=== PATIENT | male | born 1950 | race Caucasian/White ===

== ENCOUNTER 2018-09-19 20:08 | Emergency (ER) | payer MEDICARE, BC, SELFPAY ==
[2018-09-19 20:10] VITALS: BP 148/90; PULSE 61; RESP 14; TEMP 36.6; O2SAT 99
--- NOTE | 2018-09-19 20:24 | ED.MALEGU ---
HPI - Male Genitourinary General Chief complaint: Urogenital-Male Stated complaint: PLUGGED CATH Time Seen by Provider: 09/19/18 20:10 Source: patient Mode of arrival: ambulatory Limitations: no limitations History of Present Illness HPI Narrative: 67-year-old male with known prostate issues with an indwelling Lawrence catheter. Is scheduled to see Urology within the coming weeks here for evaluation feeling like his catheter is plugged. He states he is leaking around the catheter. Does have some lower abdominal pain. Related Data Allergies Allergy/AdvReac Type Severity Reaction Status Date / Time No Known Drug Allergies Allergy Verified 09/19/18 20:50 Review of Systems Constitutional Denies fever(s) Gastrointestinal Comments: Lower abdominal pain Genitourinary Comments: Lawrence catheter plugged Leaking around the catheter Integumentary/Breasts Denies rash Hematologic/Lymphatic Comments: Not on anticoagulation PFSH Social History Smoking Status: Former smoker Exam Initial Vital Signs Initial Vital Signs: Vital Signs Temperature 97.8 F 09/19/18 20:10 Pulse Rate 61 09/19/18 20:10 Respiratory Rate 14 09/19/18 20:10 Blood Pressure 148/90 H 09/19/18 20:10 Pulse Oximetry 99 09/19/18 20:10 Const General: cooperative, comfortable, well developed, well groomed and No acute distress Resp Effort & Inspection: normal respiratory effort Cardio Rate: regular rate GI Inspection: non-distended Palpation: soft Other: Circumcised, Lawrence catheter in place Skin Lesions: no lesions Rashes: no rashes Neuro General: alert, awake and oriented x3 Extrem General: normal to inspection and capillary refill normal Psych Appearance: grossly normal and well kempt Course Orders Ordered: Discontinued Medications Lidocaine HCl (Urojet) 5 ml TOP NOW ONE Stop: 09/19/18 20:29 Last Admin: 09/19/18 20:50 Dose: 5 ml Vital Signs - 8 hr 09/19/18 21:45 Pulse Rate 72 Respiratory Rate 18 Blood Pressure 128/74 Pulse Oximetry 96 MDM - Male Genitourinary MDM Narrative Medical decision making narrative: Patient's Lawrence catheter was removed in a 3 way catheter was inserted with return of several 100 cc of bloody urine. No clots. Patient states he felt better afterwards. We did discuss urinary retention and also Lawrence catheter problems. He was given return precautions. Will hold on further workup for now. He expressed understanding and agreement with plan. Discharge Plan Departure Patient Disposition: Home Clinical Impression: Acute urinary retention, Lawrence catheter problem Discharge Date/Time: 09/19/18 21:56 Interventions: ED Discharge Assessment Last Done: 09/19/18 21:45 Instructions: How to Care for Your Lawrence Catheter -- Male Activity Restrictions/Additional Instructions: Keep all of your scheduled medical appointments. Continue all of your medications as directed. Return to the emergency department for any new or worsening symptoms.
[2018-09-19] MEDS: LIDOCAINE 2% (UROJET) 5 ML GEL TOP (20:50)
[2018-09-19 21:45] VITALS: BP 128/74; PULSE 72; RESP 18; O2SAT 96
== END 2018-09-19 21:56 | disposition home or self-care (01) ==
PROVIDERS: Emergency Provider Emergency Medicine
DX: R33.9 Retention of urine, unspecified (principal); T83.9XXA Unspecified complication of genitourinary prosthetic device, implant and graft, initial encounter
CPT/HCPCS: 51705; 99283

== ENCOUNTER 2018-09-22 20:22 | Emergency (ER) | payer MEDICARE, BC, SELFPAY ==
[2018-09-22 20:30] VITALS: BP 112/78; PULSE 78; RESP 16; TEMP 36.9; O2SAT 94
[2018-09-22 22:18] VITALS: BP 115/75; PULSE 76; RESP 16; O2SAT 96
--- NOTE | 2018-09-23 01:57 | ED.MALEGU ---
HPI - Male Genitourinary General Chief complaint: Urogenital-Male Stated complaint: URINARY CATHETER IS PLUGGED Time Seen by Provider: 09/22/18 20:49 Source: patient Mode of arrival: ambulatory Limitations: no limitations History of Present Illness HPI Narrative: 67-year-old male, nonsmoker presents to the emergency department with a chief complaint of Lawrence catheter problem. He has fully placed on Wednesday and has ongoing trouble with the enlarged prostate. [facility] and has what sounds like an upcoming surgical intervention. He states that he started having decreased output in the Lawrence bag and then urine was leaking around the catheter. This has happened in the past usually with a clogged catheter. He denies abdominal pain nor flank pain. He is not dizzy or lightheaded. Onset (ago): hour(s) Duration: constant Location: penis Relieving factors: none Related Data Allergies Allergy/AdvReac Type Severity Reaction Status Date / Time No Known Drug Allergies Allergy Verified 09/19/18 20:50 Review of Systems Constitutional Denies chills, Denies fever(s), Denies lethargy and Denies weakness Eyes Denies change in vision, Denies eye discharge, Denies irritation and Denies loss of vision ENT Ears, Nose, Mouth, and Throat: Denies change in voice, Denies neck pain and Denies sore throat Cardiovascular Denies chest pain, Denies irregular heart rhythm, Denies lightheadedness, Denies palpitations, Denies dyspnea, Denies dyspnea on exertion and Denies orthopnea Respiratory Denies cough, Denies dyspnea, Denies dyspnea on exertion and Denies wheezing Gastrointestinal Gastrointestinal: Denies abdominal pain, Denies change in bowel habits, Denies diarrhea, Denies nausea and Denies vomiting Genitourinary Denies hematuria, Denies flank pain, Denies urinary incontinence and Denies urinary urgency Comments: Lawrence catheter problem Musculoskeletal Denies neck pain Integumentary/Breasts Denies pruritus, Denies erythema, Denies rash and Denies wounds Neurologic Denies confusion, Denies loss of vision and Denies weakness Psychiatric Denies anxiety, Denies confusion, Denies depression, Denies homicidal ideation and Denies suicidal ideation Endocrine Denies palpitations Hematologic/Lymphatic Denies easy bruising Allergic/Immunologic Denies wheezing [facility] Social History Smoking Status: Never smoker Exam Narrative Exam Narrative: GEN: AOx3 and in mild distress EYES: Pupils are equal, round, and reactive to light and accommodation. Extraoccular muscles are intact bilaterally. There is no subconjunctival hemorrhage or exudate. CHEST: Lungs are clear to auscultation bilaterally and free of wheezes, rales, or rhonchi. Heart rate is regular rhythm, there are no murmurs, clicks, rubs, or gallops. There is no chest wall tenderness. ABD: Abdomen is soft and nontender. There is no guarding or rebound. Bowel sounds are normal in all 4 quadrants. There is no mass or organomegaly. : Lawrence catheter in place, asymptomatic EXT: Full painless ROM of all extremities with no loss of sensation or strength. SKIN: Warm, pink, and dry. No erythema or rash Initial Vital Signs Initial Vital Signs: Vital Signs Temperature 98.4 F 09/22/18 20:30 Pulse Rate 78 09/22/18 20:30 Respiratory Rate 16 09/22/18 20:30 Blood Pressure 112/78 09/22/18 20:30 Pulse Oximetry 94 09/22/18 20:30 Course Reevaluation(s) Reevaluation #1: Patient easily flushed by nursing to clear. Vital Signs - 8 hr 09/22/18 20:30 09/22/18 22:18 Temperature 98.4 F Pulse Rate 78 76 Respiratory Rate 16 16 Blood Pressure 112/78 115/75 Pulse Oximetry 94 96 MDM - Male Genitourinary Medical Records Attestation: I reviewed the patient's medical records. Lab Data Attestation: I reviewed the patient's lab results. Discharge Plan Departure Patient Disposition: Home Clinical Impression: Complication of Lawrence catheter Discharge Date/Time: 09/22/18 22:18 Interventions: ED Discharge Assessment Last Done: 09/22/18 22:18 Instructions: How to Care for Your Lawrence Catheter -- Male Activity Restrictions/Additional Instructions: *You have been diagnosed with [ Lawrence catheter problem ] *What to do: * continue to take medications as directed *Follow up with your primary care provider in 2-3 days, call for an appointment. Let them know you were seen in the Emergency Department and that we ask that you be seen in follow up *Return to ER if you should have any new, worsening or concerning symptoms
== END 2018-09-22 22:18 | disposition home or self-care (01) ==
PROVIDERS: Emergency Provider Emergency Medicine
DX: T83.9XXA Unspecified complication of genitourinary prosthetic device, implant and graft, initial encounter (principal)
CPT/HCPCS: 51700; 99283